=== PATIENT | male | born 2000 | race Caucasian/White ===

== ENCOUNTER 2019-10-24 08:59 | Emergency (ER) | payer MEDICAID ==
[~2019-10-24] VITALS: Ht 177.8 cm; Wt 109.8 kg
--- NOTE | 2019-10-24 09:20 | NUR ---
patient BIBmother c/o cough and congestion x 2 weeks. On room air, breathing evenly and unlabored.Kept comfortable, will continue to monitor accordingly.
[2019-10-24 09:31] VITALS: BP 159/91
--- NOTE | 2019-10-24 09:31 | NUR ---
Patient discharged to home in stable condition. Written and verbal after care instructions given. Patient verbalizes understanding of instruction.
== END 2019-10-24 09:31 | disposition home or self-care (01) ==
LOC: ER 09:04
DX: J45.909 Unspecified asthma, uncomplicated (principal); Z90.89 Acquired absence of other organs

== ENCOUNTER 2020-03-26 17:06 | Emergency (ER) | payer MEDICAID ==
[~2020-03-26] VITALS: Ht 177.8 cm; Wt 127.0 kg
--- NOTE | 2020-03-26 17:40 | NUR ---
RECTAL EXAM DONE BY CRISTINA CHAVIRA, OCCULT BLOOD SENT TO LAB.
[2020-03-26 17:56] LABS: OCCULT BLOOD STOOL NEGATIVE (NEGATIVE)
[2020-03-26 17:58] LABS: BASOPHILS # (AUTO) 0.1 /CMM (0.0-0.2); BASOPHILS % (AUTO) 0.9 % (0.0-2.0); EOSINOPHILS % (AUTO) 2.7 % (0.0-6.0); HEMATOCRIT 48 % (39-51); HEMOGLOBIN 15.8 g/dL (13.5-17.5); LYMPHOCYTES # (AUTO) 3.3 /CMM (0.8-4.8); LYMPHOCYTES % (AUTO) 27.9 % (20.0-44.0); MEAN CORPUSCULAR HGB CONC 33 g/dl (31.0-36.0); MEAN CORPUSCULAR VOLUME 91 fL (80-96); MONOCYTES # (AUTO) 1.3 /CMM (0.1-1.30); MONOCYTES % (AUTO) 10.8 % (2.0-12.0); NEUTROPHILS # (AUTO) 6.7 /CMM (1.8-8.9); NEUTROPHILS % (AUTO) 57.7 % (43.0-81.0); PLATELET COUNT (AUTO) 220 /CMM (150-450); RED BLOOD CELL COUNT(AUTO) 5.25 MIL/uL (4.5-6.0); WHITE BLOOD COUNT (AUTO) 11.7 K/uL (4.3-11.0)
[2020-03-26] MEDS ORDERED: IV NS 0.9% 1,000 ML BAG IV ONE (18:00)
[2020-03-26 18:16] LABS: ALBUMIN 4.3 g/dL (3.4-5.0); BILIRUBIN,DIRECT 0.1 mg/dL (0.0-0.2); BILIRUBIN,TOTAL 0.8 mg/dL (0.2-1.0); CALCIUM, SERUM 9.2 mg/dL (8.5-10.1); CREATININE 0.8 mg/dL (0.6-1.3); POTASSIUM 3.8 mmol/L (3.5-5.1); TOTAL PROTEIN, SERUM 7.7 g/dL (6.4-8.2)
[2020-03-26] MEDS ORDERED: IOHEXOL-300 100 ML VIAL IV ONE (18:27)
[2020-03-26] MEDS ORDERED: CT SWABBABLE VALVE TRANS SET 1 EA INFUS.SET MC ONE (18:27)
[2020-03-26] MEDS ORDERED: IV NS 0.9% 250 ML IV ONE (18:27)
--- NOTE | 2020-03-26 18:51 | NUR ---
PATIENT RESTING, NO DISTRESS NOTED, AMBULATORY WITH STEADY GAIT.
--- NOTE | 2020-03-26 19:18 | NUR ---
Patient a/ox4, breathing even and unlabored, denies pain. No distress noted. IV removed. Catheter intact and site benign. Pressure and 4x4 applied to site. No bleeding noted.Patient discharged to home in stable condition. Written and verbal after care instructions given. Patient verbalizes understanding of instruction.
[2020-03-26 19:19] VITALS: BP 149/76
== END 2020-03-26 19:19 | disposition home or self-care (01) ==
LOC: ER 17:06
DX: K60.2 Anal fissure, unspecified (principal); K59.00 Constipation, unspecified; J45.909 Unspecified asthma, uncomplicated; Z90.89 Acquired absence of other organs
CPT/HCPCS: 36415; 74177; 80048; 80076; 82272; 85025; 85730; 99285; J7030; J7050; Q9967